=== PATIENT | female | born 1985 | race Two or more races ===

== ENCOUNTER 2016-11-25 11:53 | Emergency (ER) | payer MEDICAID ==
[2016-11-25 15:15] VITALS: BP 117/64
== END 2016-11-25 15:15 | disposition home or self-care (01) ==
LOC: ED 11:53
DX: O03.4 Incomplete spontaneous abortion without complication (principal)

== ENCOUNTER 2017-03-23 21:55 | Emergency (ER) | payer MEDICAID ==
[2017-03-23 22:21] VITALS: BP 149/94
[2017-03-23 23:42] LABS: BASOPHIL % 0.2 % (0-2); PLATELET COUNT 201 x10^3mcL (130-400)
[2017-03-23 23:46] LABS: CALCIUM 8.5 mg/dL (8.5-10.1); CARBON DIOXIDE 25.1 mmol/L (21-32); CHLORIDE SERUM 103 mmol/L (98-107); CREATININE SERUM 0.6 mg/dL (0.6-1.0); GFR1 > 60 mL/min; GLUCOSE SERUM 115 mg/dL (74-106); SODIUM SERUM 138 mmol/L (136-145)
[2017-03-23 23:47] LABS: RED CELL DISTRIBUTION WIDTH 14.8 % (11.5-14.5)
[2017-03-23 23:51] LABS: ALBUMIN 3.5 g/dL (3.4-5.0); ALKALINE PHOSPHATASE 67 U/L (46-116); ALT/SGPT 54 U/L (14-59); AST/SGOT 36 U/L (15-37); BILIRUBIN TOTAL 0.3 mg/dL (0.20-1.00); TOTAL PROTEIN, SERUM 7.5 g/dL (6.4-8.2)
== END 2017-03-24 00:33 | disposition home or self-care (01) ==
LOC: ED 21:55
PROVIDERS: Emergency Medicine
DX: K62.5 Hemorrhage of anus and rectum (principal); E11.9 Type 2 diabetes mellitus without complications
CPT/HCPCS: 36415; J1170; Q0162

== ENCOUNTER 2017-10-04 16:40 | Emergency (ER) | payer MEDICAID ==
[~2017-10-04] VITALS: Ht 165.1 cm; Wt 56.7 kg
[2017-10-04 17:24] LABS: BASOPHIL % 0.4 % (0-2); PLATELET COUNT 201 x10^3mcL (130-400)
[2017-10-04 17:31] LABS: RED CELL DISTRIBUTION WIDTH 18.2 % (11.5-14.5)
[2017-10-04 17:34] LABS: CALCIUM 8.6 mg/dL (8.5-10.1); CARBON DIOXIDE 23.1 mmol/L (21-32); CHLORIDE SERUM 104 mmol/L (98-107); CREATININE SERUM 0.5 mg/dL (0.6-1.0); GFR1 > 60 mL/min; GLUCOSE SERUM 107 mg/dL (74-106); POTASSIUM SERUM 3.4 mmol/L (3.5-5.1); SODIUM SERUM 139 mmol/L (136-145)
[2017-10-04 17:39] LABS: ALBUMIN 3.2 g/dL (3.4-5.0); ALKALINE PHOSPHATASE 57 U/L (46-116); ALT/SGPT 28 U/L (14-59); AST/SGOT 20 U/L (15-37); BILIRUBIN TOTAL 0.25 mg/dL (0.20-1.00); TOTAL PROTEIN, SERUM 7.2 g/dL (6.4-8.2)
[2017-10-04 19:40] VITALS: BP 110/74
== END 2017-10-04 19:40 | disposition home or self-care (01) ==
LOC: ED 16:40
PROVIDERS: Emergency Medicine
DX: O02.1 Missed abortion (principal); Z3A.16 16 weeks gestation of pregnancy
CPT/HCPCS: J2210; J2270; J7030